=== PATIENT | male | born 1960 | race Caucasian/White ===

== ENCOUNTER → 2016-10-04 | Outpatient (CLI) | payer OTHER | END | disposition home or self-care (01) | LOC: CLAB 12:54 | DX: H16.30 Unspecified interstitial keratitis (principal); H02.411 Mechanical ptosis of right eyelid; H04.121 Dry eye syndrome of right lacrimal gland | CPT/HCPCS: 36415; 86592; 86780 ==

== ENCOUNTER 2016-10-07 14:00 | Inpatient (IN) | payer OTHER ==
--- NOTE | ~2016-10-07 | DS ---
Unit #: [id number] #: [id number] Patient: FRANCO HAND [id number] [place] [address] [id number] I MR#: [id number] NAME: FRANCO HAND. ROOM: 75 Age: 56 Sex: M Admission Date: 10/07/2016 : 1960 Discharge Date: 10/09/2016 Attending Physician: Moi Atkins M.D. Primary Care Physician: Primary Care Physician No DISCHARGE SUMMARY REASON FOR ADMISSION Polysubstance abuse, anxiety, and depression. DIAGNOSTIC STUDIES LABORATORY RESULTS: Urine drug screen positive for benzodiazepine. HOSPITAL COURSE The patient was admitted to inpatient unit on 10/07/2016 and discharged on 10/09/2016. The patient was treated on the inpatient unit with chemical dependency group, expressive therapy, psychoeducation, and psychotherapy. The patient responded well with the above modalities of treatment. Subsequently, the patient was discharged with a plan to follow up in outpatient program. DISCHARGE MEDICATIONS Cleocin 300 mg t.i.d. for 3 days for infection and Vivitrol 380 mg injection deep intramuscularly every 30 days after ReVia challenge. The patient advised to continue with eyedrops as advised. DISCHARGE DIAGNOSES Psychiatric: Alcohol use disorder, moderate, F10.20; opioid use disorder, moderate, F11.20; amphetamine use disorder, moderate, F15.20; and mood disorder, not otherwise specified, F32.9. Secondary diagnosis: Deferred. Medical diagnoses: Hypertension, hepatitis C, and eye infection. Stressors: Psychosocial stressors. DISCHARGE INSTRUCTIONS The patient to follow up in outpatient clinic as per social service worker. CONDITION ON DISCHARGE The patient pleasant and cooperative. Denied any psychotic symptom or any suicidal ideation. PROGNOSIS Guarded. DIET AND ACTIVITY As tolerated. Unit #: [id number] #: [id number] Patient: FRANCO HAND Dictated by... Pablito Soliz/austin TD: 10/09/2016 18:39 JOB #: [id number] DISCHARGE SUMMARY Page 1 of 1 X Moi Atkins MD X DISCHARGE SUMMARY
--- NOTE | ~2016-10-07 | PA ---
Unit #: [id number] #: [id number] Patient: FRANCO HAND [id number] [facility] [address] [place] [address] [id number] I MR#: [id number] NAME: FRANCO HAND ROOM: 75 Age: 56 Sex: M Admission Date: 10/07/2016 : 1960 Date of Assessment: Attending Physician: Moi Atkins M.D. Admitting Physician: Moi Atkins M.D. PSYCHIATRIC ASSESSMENT INFORMANTS The patient reliability, fair informant and chart reliability, good. CHIEF COMPLAINT Substance abuse, "I need Vivitrol." HISTORY OF PRESENT ILLNESS Mr. Hollins is a 56-year-old male, presented with the above-mentioned complaint. The patient presented with polysubstance abuse. The patient stated that he would like a Vivitrol shot. The patient stated that "I have been trying to wean myself off from substances, I need help." The patient reported history of abusing meth, heroin, and alcohol. The patient denied any suicidal ideation, intent, or plan. Denied any homicidal ideation. Denied any psychotic symptom. The patient reported tobacco use, age of onset 7; alcohol, age of onset 5; marijuana, age of onset 14; crack cocaine, 40; LSD, age of onset 15; opioid, age of onset 22; and amphetamine, age of onset 22. The patient reported last sobriety 8 months ago. The patient reported history of blackout, history of hepatitis, withdrawal symptom, and IV drug use. Reported abdominal cramping, diaphoresis, muscle cramping, diarrhea, depressed mood, headache, irritability, nervousness, poor appetite, poor concentration, restlessness, rhinorrhea, and withdrawal seizures in the past. The patient needing inpatient admission at this time for psychiatric stabilization. PAST PSYCHIATRIC HISTORY Remarkable for history of previous treatment at [facility] in the past. PAST FAMILY HISTORY AND SOCIAL HISTORY The patient has a good support from his niece. No history of any abuse. MEDICAL HISTORY Remarkable for hypertension, eye infection, and hepatitis C. Musculoskeletal; muscle strength and tone, no atrophy or abnormal movement. Gait normal. MEDICATION HISTORY The patient is on Ocuflox eyedrops and Zovirax 400 mg five times a day. ALLERGIES No known drug allergies. SUBSTANCE ABUSE HISTORY Unit #: [id number] #: [id number] Patient: FRANCO HAND Please see above. REVIEW OF SYSTEMS HEENT: Eyes, clear. Ears, nose, mouth, and throat; clear. CARDIOVASCULAR: Unremarkable. RESPIRATORY: Unremarkable. GI: Unremarkable. : Unremarkable. SKIN: Unremarkable. LYMPH NODE: Unremarkable. NEUROLOGIC: Unremarkable. ENDOCRINE: Unremarkable. HEMATOLOGIC: Unremarkable. ALLERGIC/IMMUNOLOGIC: Unremarkable. MUSCULOSKELETAL: Muscle strength and tone, no atrophy or abnormal movement. Gait normal. MENTAL STATUS EXAMINATION CONSTITUTIONAL: Measurement of vital signs; temperature 98.0, heart rate 64, respiratory rate 17, and blood pressure 123/79. Height 6 feet 1 inch and weight 215 pounds. GENERAL APPEARANCE: The patient dressed casually. The patient did not show any facial deformity. MUSCULOSKELETAL: Please see above. PSYCHIATRIC EXAMINATION Description of speech; regular rate, normal volume, normal articulation, coherent, and spontaneous. Description of thought process, goal directed. Description of association, intact. Description of abnormal psychotic thinking; the patient denied any hallucinations, delusions, or any suicidal or homicidal ideation. Denied any psychotic symptom. History of substance abuse. Description of the patient's judgment: Concerning everyday activity, poor. Social situation, poor. Concerning psychiatric condition, poor. Complete mental status examination; oriented in time, place, and person. Recent and remote memory, fair. Attention span and concentration, fair. Language, able to name object and repeat phrases. Fund of knowledge, aware of current event and passive vocabulary intact. Mood and affect, sad and dysphoric. Insight and judgment, fair to poor. ASSETS AND LIABILITIES Assets, the patient is articulate and able to take care of his ADL. Liability, history of substance abuse. ADMITTING DIAGNOSES Psychiatric: Alcohol use disorder, moderate, F10.20; opioid use disorder, moderate, F11.20; amphetamine use disorder, moderate, F15.20; and mood disorder, not otherwise specified, F32.9. Secondary diagnosis: Deferred. Medical diagnoses: Hypertension, hepatitis C, and eye infection. Stressors: Psychosocial stressors. PSYCHIATRIC PLAN AND TREATMENT GOAL AND DISCHARGE PLAN 1. Advised to admit the patient on the inpatient unit. Provide safe, Unit #: [id number] #: [id number] Patient: FRANCO HAND supportive, and structured environment. 2. Ordered labs; CBC, CMP, UA, and UDS. 3. Detox protocol and detox monitoring. Advised to resume home medication. If needed, consider further adjustment of medication. The patient to attend all the programing, group therapy, individual therapy, and chemical dependency group. TREATMENT GOAL To attain euthymic mood, gain insight into his problem, and learn coping skills. DISCHARGE PLAN Plan to stabilize the patient and consider Vivitrol shot and follow up in outpatient program. ESTIMATED LENGTH OF STAY 3 to 5 days. Dictated by... Moi Atkins M.D. MUNA/austin TD: 10/08/2016 21:45 JOB #: [id number] PSYCHIATRIC ASSESSMENT Page 1 of 1 X Moi Atkins MD X PSYCHIATRIC ASSESSMENT
--- NOTE | ~2016-10-07 | PN ---
Unit #: [id number] #: [id number] Patient: FRANCO HAND [id number] [facility] [address] [place] [address] [id number] I MR#: [id number] NAME: FRANCO HAND. ROOM: [facility] Age: 56 Sex: M Admission Date: 10/07/2016 : 1960 Attending Physician: Moi Atkins M.D. Admitting Physician: Moi Atkins M.D. Primary Care Physician: Primary Care Physician Aury ABREU PROGRESS NOTES DATE OF SERVICE 10/08/2016 DISCUSSION Franco is a 56-year-old male seen on 10/08/2016. Patient interviewed, chart reviewed, I obtained information from nursing staff. Patient compliant, cooperative, withdrawn, isolative, anxious. Patient reported having eye infection, currently on medication. Vital signs: 98.3, 75, 17, 124/74 COMPLETE REVIEW OF SYSTEMS Unremarkable. MENTAL STATUS EXAMINATION GENERAL APPEARANCE: Patient dressed casually in hospital attire, lying comfortably in bed. ATTENTION SPAN AND CONCENTRATION: Fair. Oriented in place and person. MOOD AND AFFECT: Sad, depressed. SPEECH: Monotone. THOUGHT PROCESS: [place]. Patient denied any thoughts of harming self or others, or any psychotic symptoms. RECENT AND REMOTE MEMORY: Poor. INSIGHT AND JUDGMENT: Poor. DIAGNOSES Alcohol use disorder, moderate Opiate use disorder, moderate Amphetamine use disorder, moderate ASSESSMENT/PLAN Advised to continue with current medication. If needed, consider further adjustment on medication. Dictated by... Pablito Soliz/marianela TD: 10/09/2016 00:05 JOB #: [id number] Unit #: [id number] #: [id number] Patient: FRANCO HAND [facility] PROGRESS NOTES Page 1 of 1 X Moi Atkins MD PROGRESS NOTE
--- NOTE | ~2016-10-07 | HP ---
Unit #: [id number] #: [id number] Patient: FRANCO HAND [id number] [place] [address] [id number] I MR#: [id number] NAME: FRANCO HAND. ROOM: P175 Age: 56 Sex: M Admission Date: 10/07/2016 : 1960 Attending Physician: Moi Atkins M.D. Admitting Physician: Moi Atkins M.D. Primary Care Physician: Primary Care Physician No HISTORY AND PHYSICAL HISTORY OF PRESENT ILLNESS Franco is a 56 year old admitted to [facility] because of his polysubstance abuse which includes alcohol, IV meth and heroin. PAST MEDICAL HISTORY 1. Long history of alcohol abuse. 2. History of illicit substance abuse to include IV heroin and IV meth. 3. Hepatitis C. 4. High blood pressure. PAST SURGICAL HISTORY Nothing reported. ALLERGIES No known drug allergies. SOCIAL HISTORY Smokes 1 pack per day. Drinks three fifths of vodka on a daily basis. Has a history of illicit substance abuse to include IV heroin and methamphetamine. FAMILY HISTORY Medically noncontributory. REVIEW OF SYSTEMS CONSTITUTIONAL: No fever or chills. HEENT: Denies any sore throat, ear pain or runny nose. CARDIOVASCULAR: Denies chest pain, irregular heart rhythm or palpitations. CHEST: Denies shortness of breath or cough. No hemoptysis. GASTROINTESTINAL: Denies nausea, vomiting, diarrhea or chronic constipation. ENDOCRINE: Denies history of increased thirst or urination. No recent significant weight loss or gain. GENITOURINARY: Denies dysuria, frequency, or hematuria. SKIN: Denies any rashes. HEMATOLOGIC: Denies history of increased bleeding or bruising. MUSCULOSKELETAL: Denies any hot, swollen joints. No generalized muscle pain. NEUROLOGIC: Denies problems with vision or speech. No frequent, severe headaches. No numbness, tingling or weakness in any extremities. Denies loss of bladder or bowel control. CURRENT MEDICATIONS Unit #: [id number] #: [id number] Patient: FRANCO HAND 1. Detox protocol. 2. Ibuprofen 800 mg t.i.d. p.r.n. 3. Ocuflox 1 drop q.i.d. 4. Pred Forte 1 drop q.i.d. 5. Zovirax 400 mg 5 times a day. 6. Cleocin 300 mg t.i.d. PHYSICAL EXAMINATION GENERAL: Alert, well-nourished, in no apparent distress. VITAL SIGNS: Blood pressure 122/70, heart rate 80, respirations 16, temperature 98.6. WEIGHT: 215. HEIGHT: 6 feet 1 inch. SKIN: Warm and dry without rash or lesion. HEENT: Normocephalic. TMs not viewed. Oral and nasal passages clear. Conjunctivae slightly injected bilaterally. No discharge is noted. Negative preauricular lymph nodes. NECK: Supple without lymphadenopathy or thyromegaly. HEART: Regular rate and rhythm without murmur. LUNGS: Clear. ABDOMEN: Soft, nontender. : Not done. EXTREMITIES: No evidence of cyanosis, clubbing or edema. Moves all without focal deficit. NEUROLOGICAL: Grossly within normal limits. Cranial Nerves: II: Visual nicole are intact. III, IV AND : Extraocular movements are intact. Pupils are equal, round and reactive to light. V: Facial sensation is grossly normal. VII: Facial movements and expression are normal. VIII: Auditory acuity grossly intact. IX, X: Uvula is midline. Phonation is normal. XI: Patient shrugs shoulders and turns head normally. XII: Tongue protrudes in the midline. Sensory and Motor Function: Sensory and motor sensation is grossly normal. Motor: moves all extremities well. Coordination: Gait is normal. Deep Tendon Reflexes: Intact. IMPRESSION 1. Psychiatric admission. 2. Patient is being treated for bilateral eye infection and tooth infection. RECOMMENDATIONS PSYCHIATRIC: Per psychiatrist. MEDICAL: 1. See no contraindications to participate in facility's activities. 2. Detox per protocol. 3. Continue eye drops and Cleocin. MEDICAL PROGNOSIS Good. MEDICAL CONDITION Stable. Dictated by... Unit #: [id number] #: [id number] Patient: FRANCO HAND Diana Pelaez P.A.-C. for Pablito Barber/neelima TD: 10/08/2016 17:41 JOB #: [id number] HISTORY AND PHYSICAL Page 1 of 1 X Diana Pelaez HISTORY AND PHYSICAL
[2016-10-08 09:51] LABS: BASOPHIL# 0.1 X10e3 (0-0.3); BASOPHIL% 1.3 % (0-2.5); EOSINOPHIL# 0.2 X10e3 (0-0.7); EOSINOPHIL% 4.4 % (0.0-7.0); HEMATOCRIT 42.1 % (38.0-50.0); HEMOGLOBIN 13.9 gm/dL (13.0-16.0); LYMPHOCYTE# 1.7 X10e3 (1.0-3.5); LYMPHOCYTE% 32.1 % (17.0-45.0); MEAN CELL VOLUME 91.8 FL (83-96); MEAN CORPUSCULAR HEMOGLOBIN 30.3 PG (28-34); MONOCYTE# 0.6 X10e3 (0-1.0); NEUTROPHIL# 2.6 X10e3 (1.5-7.1); NEUTROPHIL% 50.2 % (40-75); PLATELET COUNT 254 X10e3 (140-420); RED BLOOD COUNT 4.58 X10e (3.90-5.60); RED CELL DISTRIBUTION WIDTH 14.8 % (11.0-15.5); WHITE BLOOD COUNT 5.2 X10e3 (4.0-10.5)
[2016-10-08 09:58] LABS: DIFF IND NO
[2016-10-08 10:08] LABS: ALBUMIN SERUM 3.6 g/dL (3.5-5.0); BILIRUBIN,TOTAL 0.4 mg/dL (0.2-2.0); BUN/CREATININE RATIO 13.75; CREATININE SERUM 0.8 mg/dL (0.6-1.4); GLOM FILT RATE Estimated 99.9 mL/min (>60); POTASSIUM 4.7 mmol/L (3.5-5.1); PROTEIN TOTAL SERUM 5.9 g/dL (6.0-8.3)
[2016-10-09 09:45] LABS: URINE APPEARANCE CLEAR; URINE BILIRUBIN NEG (NEG); URINE BLOOD NEG (NEG); URINE COLOR YELLOW; URINE GLUCOSE NEG (NEG); URINE KETONE NEG (NEG); URINE LEUKOCYTE ESTERASE NEG (NEG); URINE NITRATE NEG (NEG); URINE PH 5.5 (5-8); URINE PROTEIN NEG (NEG); URINE SPECIFIC GRAVITY 1.011 (1.003-1.035); URINE UROBILINOGEN 0.2 MG/DL (NEG)
[2016-10-09 12:25] LABS: AMPHETAMINE NEG (NEG); BARBITURATES NEG (NEG); BENZODIAZEPINES POS (NEG); COCAINE NEG (NEG); MARIJUANA NEG (NEG); OPIATES NEG (NEG); TRICYCLIC ANTIDEPRESSANTS NEG (NEG); U METHADONE NEG (NEG)
== END 2016-10-09 11:15 | disposition home or self-care (01) | DRG 897 ==
LOC: P1E 18:32
PROVIDERS: Psychiatry & Neurology Psychiatry
PROC: HZ2ZZZZ Detoxification Services for Substance Abuse Treatment (ICD-10-PCS; principal; 2016-10-07)
DX: F10.20 Alcohol dependence, uncomplicated (principal); F11.20 Opioid dependence, uncomplicated; F15.20 Other stimulant dependence, uncomplicated; F39 Unspecified mood [affective] disorder; H44.003 Unspecified purulent endophthalmitis, bilateral; I10 Essential (primary) hypertension; B19.20 Unspecified viral hepatitis C without hepatic coma; F17.210 Nicotine dependence, cigarettes, uncomplicated; K04.7 Periapical abscess without sinus; F32.9 Major depressive disorder, single episode, unspecified; F41.9 Anxiety disorder, unspecified
CPT/HCPCS: 80053; 80307; 81003; 85025; 86592

== ENCOUNTER 2016-10-10 13:32 | Emergency (ER) | payer OTHER ==
--- NOTE | ~2016-10-10 | EKG ---
PATIENT: FRANCO HAND UNIT #: [id number] Ventricular Rate: 62 BPM Atrial Rate: 62 BPM P-R Interval: 144 ms QRS Duration: 96 ms Q-T Interval: 406 ms QTC Calculation(Bezet): 412 ms P Overton: 29 degrees Calculated R Overton: 1 degrees Diagnosis Line: Normal sinus rhythm Diagnosis Line: Normal ECG Diagnosis Line: No previous ECGs available Diagnosis Line: Confirmed by TALYA DERAS MD ([id number]) on 10/10/2016 Diagnosis Line: 5:28:36 PM INTERPRETING MD: AUGUSTA CHAVEZ
--- NOTE | ~2016-10-10 | CR72 ---
[facility] A Service of [facility] & [facility] RADIOLOGY TEXT RESULTS PATIENT: FRANCO HAND LOCATION: [facility] : 60 UNIT #: [id number] AGE: [address]: Prashant Limon MD SEX: M ORDER DR: [id number] [facility] [address] [place], [place] [address] [id number] MR#: [id number] Acc #: [id number] NAME: FRANCO HAND : 1960 SEX: M STUDY DATE/TIME: 10/10/2016 15:27 UNIT: [facility] ROOM: STUDY DESCRIPTION: CR Chest Single View Portable Attending Physician: Prashant Limon M.D. Ordering Physician: Prashant Limon M.D. Primary Care Physician: No Primary Care Physician MEDICAL IMAGING REPORT This report is preliminary unless electronic signature is present EXAM Portable chest 10/10/2016 HISTORY History supplied is chest pain beginning yesterday. FINDINGS An AP portable view of the chest obtained. Cardiac size is normal. Lungs are clear. CONCLUSION Stable chest. Dictated by... Sal Barraza M.D. THIS IS AN ELECTRONICALLY VERIFIED REPORT Sal Barraza M.D. at 10/11/2016 7:10 AM TIM/florentin TD: 10/10/2016 16:58 JOB #: [id number] MEDICAL IMAGING REPORT Page 1 of 1 COPY
[2016-10-10 14:04] LABS: BASOPHIL# 0.1 X10e3 (0-0.3); BASOPHIL% 0.9 % (0-2.5); EOSINOPHIL# 0.2 X10e3 (0-0.7); EOSINOPHIL% 3.2 % (0.0-7.0); HEMATOCRIT 42.7 % (38.0-50.0); LYMPHOCYTE# 1.3 X10e3 (1.0-3.5); LYMPHOCYTE% 18.8 % (17.0-45.0); MEAN CELL VOLUME 91.8 FL (83-96); MEAN CORPUSCULAR HEMOGLOBIN 30.1 PG (28-34); MEAN CORPUSCULAR HGB CONC 32.8 g/dL (30-36); MEAN PLATELET VOLUME 8.8 FL (6.5-11.5); MONOCYTE# 0.7 X10e3 (0-1.0); NEUTROPHIL# 4.5 X10e3 (1.5-7.1); NEUTROPHIL% 67.1 % (40-75); PLATELET COUNT 257 X10e3 (140-420); RED BLOOD COUNT 4.65 X10e (3.90-5.60); RED CELL DISTRIBUTION WIDTH 14.4 % (11.0-15.5); WHITE BLOOD COUNT 6.8 X10e3 (4.0-10.5)
[2016-10-10 14:08] LABS: DIFF IND NO
[2016-10-10 14:38] LABS: BILIRUBIN, DIRECT 0.1 mg/dL (0.0-0.2); BILIRUBIN,INDIRECT 0.3 mg/dL (0.0-0.9); BILIRUBIN,TOTAL 0.4 mg/dL (0.2-2.0); BUN/CREATININE RATIO 15.45; CALCIUM SERUM 9.4 mg/dL (8.4-10.2); CREATININE SERUM 1.1 mg/dL (0.6-1.4); GLOM FILT RATE Estimated 74.7 mL/min (>60); POTASSIUM 4.5 mmol/L (3.5-5.1); PROTEIN TOTAL SERUM 6.5 g/dL (6.0-8.3)
[2016-10-10 15:05] LABS: POC - CKMB <1.0 ng/mL (0.0-7.9); POC - TROPONIN <0.05 ng/mL (<=0.05)
[2016-10-10 15:28] LABS: POC - CKMB <1.0 ng/mL (0.0-7.9); POC - TROPONIN <0.05 ng/mL (<=0.05)
[2016-10-10 16:06] LABS: POC - CKMB <1.0 ng/mL (0.0-7.9); POC - TROPONIN <0.05 ng/mL (<=0.05)
== END 2016-10-10 16:19 | disposition home or self-care (01) ==
LOC: CED 13:32
PROVIDERS: Emergency Medicine
DX: K21.0 Gastro-esophageal reflux disease with esophagitis (principal); K75.9 Inflammatory liver disease, unspecified; I10 Essential (primary) hypertension; F17.210 Nicotine dependence, cigarettes, uncomplicated
CPT/HCPCS: 36415; 71010; 80048; 80076; 82553; 84484; 85025; 93005; 99284

== ENCOUNTER → 2016-10-10 | Outpatient (CLI) | payer OTHER | END | disposition home or self-care (01) | LOC: CLAB 12:53 | DX: H16.30 Unspecified interstitial keratitis (principal); H02.411 Mechanical ptosis of right eyelid; H04.121 Dry eye syndrome of right lacrimal gland | CPT/HCPCS: 86592; 86780 ==

== ENCOUNTER → 2017-01-14 | Outpatient (CLI) | payer MEDICARE ==
--- NOTE | ~2017-01-14 | US5 ---
[facility] A Service of [facility] RADIOLOGY TEXT RESULTS PATIENT: FRANCO HAND LOCATION: [facility] : 60 UNIT #: [id number] AGE: [address]: ALONDRA JOAQUIN SEX: M ORDER DR: [id number] [id number] [facility] [place], [place] [address] [id number] MR#: [id number] Acc #: [id number] NAME: FRANCO HAND. : 1960 SEX: M STUDY DATE/TIME: 01/14/2017 11:15 UNIT: [facility] ROOM: STUDY DESCRIPTION: US Abdominal Complete Attending Physician: Alondra Joaquin Aprn Referring Physician: Alondra Joaquin Aprn Ordering Physician: Physician Non-Staff Primary Care Physician: Primary Care Physician No MEDICAL IMAGING REPORT This report is preliminary unless electronic signature is present EXAM Abdominal ultrasound INDICATIONS Hepatitis C. This is an initial screening examination. TECHNIQUE Prasad-scale, color Doppler and spectral Doppler waveform analysis was performed through the abdomen. FINDINGS Patient's abdominal aorta is only partially visualized but measures within normal size limits, within the visualized segment. Inferior vena cava cannot be assessed. Pancreas is obscured due to overlying bowel gas. Liver is enlarged measuring up to 16.2 cm in craniocaudal dimensions. No obvious focal hepatic lesions are seen and there is no intra- or extrahepatic biliary dilatation. Right kidney is normal in appearance, with no solid or cystic renal masses identified and no hydronephrosis seen. No stones or sludge are seen within the gallbladder and there is no gallbladder wall thickening or pericholecystic fluid. Left kidney also is without evidence of hydronephrosis and no solid or cystic renal masses are identified. Spleen appears homogeneous. IMPRESSION Hepatomegaly without focal hepatic lesion. Dictated by... Yuly River M.D. THIS IS AN ELECTRONICALLY VERIFIED REPORT Yuly River M.D. at 01/15/2017 5:42 PM AFF/psc [facility] A Service of [facility] RADIOLOGY TEXT RESULTS PATIENT: FRANCO HAND LOCATION: [facility] #: [id number] : 60 UNIT #: [id number] AGE: [address]: ALONDRA JOAQUIN SEX: M ORDER DR: TD: 01/15/2017 00:03 JOB #: [id number] MEDICAL IMAGING REPORT Page 1 of 1 COPY
== END | disposition home or self-care (01) ==
LOC: CGUS 10:21
DX: B18.2 Chronic viral hepatitis C (principal); R16.0 Hepatomegaly, not elsewhere classified
CPT/HCPCS: 76700